=== PATIENT | male | born 1980 | race Caucasian/White ===

== ENCOUNTER 2017-10-26 11:51 | Emergency (ER) | payer OTHER, SELFPAY ==
[2017-10-26 11:52] VITALS: BP 136/100; PULSE 77; RESP 16; TEMP 36.7; O2SAT 99; BMI 24.3
--- NOTE | 2017-10-26 12:02 | RAD_ITS ---
STUDY: X-RAY - RIGHT HAND REASON FOR EXAM: Male, 37 years old. Injury to the fifth digit. TECHNIQUE: 3 view(s) of the hand. COMPARISON: None. FINDINGS: Normal radiocarpal articulation. Normal distal radioulnar joint. Normal visualized carpal bones. Normal carpal articulations Normal carpometacarpal articulation of the thumb. Normal second through fifth carpometacarpal joints. Normal metacarpi. Normal metacarpophalangeal joint of the thumb. Normal interphalangeal joint of the thumb. Normal proximal and distal phalanges of the thumb. Normal metacarpophalangeal joints of the second through fifth fingers. Minimal ventral subluxation of the proximal interphalangeal joint of the fifth digit. Normal phalanges of the second through fifth fingers. Soft tissue swelling. RAD/Hand Min 3 Views IMPRESSION: Minimal degree of ventral subluxation of the proximal interphalangeal joint of the fifth digit with soft tissue swelling. Electronically Signed: Liang Díaz MD at 12:41 EDT Tel [phone], Service support ,
[2017-10-26] MEDS: Naproxen 500 MG Tablet PO (12:06)
--- NOTE | 2017-10-26 12:34 | ED.VISSUMM ---
- ER Visit Summary Date of Service: 10/26/17 Chief Complaint: [] History of Present Illness: The patient is a 37 M [] Physical Examination: [] Test Results: [] Emergency Department Course and Treatment: [] Treatment Plan: [] Disposition: [] Impression: [] This note was generated with [employer] software. 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 Patient states he was pulling on a door and his fifth finger got caught behind the door and pulled an odd angle. He is complaining of pain to the fifth finger. He is right-hand dominant. Physical Examination: Vital signs are unremarkable. Physical examination significant for right upper extremity which reveals tenderness over the fifth finger itself. There is no significant tenderness over the metacarpals. He has normal sensation and cap refill. Test Results: Right hand x-rays reveal minimal ventral subluxation of the PIP joint with soft tissue swelling. Emergency Department Course and Treatment: Patient is given Naprosyn. Following x-ray digital block is performed with 3 cc 1% lidocaine. Fifth finger is reduced. Repeat x-ray is unremarkable. Patient will be placed in a AlumaFoam splint. He will follow-up with Where. Treatment Plan: [] Disposition: Discharge Impression: Right fifth finger PIP subluxation, reduced This note was generated with [employer] software. It may contain incorrect words, spelling, and punctuation that were not noted in review of the chart prior to signing <Anamaria Barakat - Last Filed: 10/26/17 13:19> ED Disposition <Leora Corrales - Last Filed: 10/26/17 12:34> <Anamaria Barakat - Last Filed: 10/26/17 13:19> - Plan for ED Patient: Chief Complaint: Upper Extremity Injury Referrals: Care Physician,No Primary [Primary Care Provider] -
--- NOTE | 2017-10-26 12:51 | ED.DCSUM_ITS ---
- ER Visit Summary Date of Service: 10/26/17 Chief Complaint: [] History of Present Illness: The patient is a 37 M [] Physical Examination: [] Test Results: [] Emergency Department Course and Treatment: [] Treatment Plan: [] Disposition: [] Impression: [] This note was generated with [employer] software. 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 Patient states he was pulling on a door and his fifth finger got caught behind the door and pulled an odd angle. He is complaining of pain to the fifth finger. He is right-hand dominant. Physical Examination: Vital signs are unremarkable. Physical examination significant for right upper extremity which reveals tenderness over the fifth finger itself. There is no significant tenderness over the metacarpals. He has normal sensation and cap refill. Test Results: Right hand x-rays reveal minimal ventral subluxation of the PIP joint with soft tissue swelling. Emergency Department Course and Treatment: Patient is given Naprosyn. Following x-ray digital block is performed with 3 cc 1% lidocaine. Fifth finger is reduced. Repeat x-ray is unremarkable. Patient will be placed in a AlumaFoam splint. He will follow-up with [facility]. Treatment Plan: [] Disposition: Discharge Impression: Right fifth finger PIP subluxation, reduced This note was generated with [employer] software. It may contain incorrect words, spelling, and punctuation that were not noted in review of the chart prior to signing <Anamaria Barakat - Last Filed: 10/26/17 13:19> ED Disposition <Leora Corrales - Last Filed: 10/26/17 12:34> <Anamaria Barakat - Last Filed: 10/26/17 13:19> - Plan for ED Patient: Chief Complaint: Upper Extremity Injury Referrals: Care Physician,No Primary [Primary Care Provider] -
--- NOTE | 2017-10-26 13:05 | RAD_ITS ---
STUDY: X-RAY - RIGHT HAND, ATTENTION FIFTH FINGER REASON FOR EXAM: Male, 37 years old. Post reduction. TECHNIQUE: 3 view(s) of the finger were obtained. COMPARISON: Comparison is made with prior examination done earlier today. FINDINGS: Normal metacarpal head. Normal metacarpophalangeal joint. Normal proximal phalanx. Normal middle phalanx. Normal distal phalanx. Normal proximal interphalangeal joint. Satisfactory reduction. Normal distal interphalangeal joint. RAD/Finger(s) Min 2 Views IMPRESSION: Normal x-ray examination of the finger. Electronically Signed: Liang Díaz MD at 13:33 EDT Tel [phone], Service support ,
--- NOTE | 2017-10-26 13:22 | ED.DEP ---
ED Disposition - Plan for ED Patient: Disposition: Home or Assisted Living Chief Complaint: Upper Extremity Injury Instructions: ED Dislocation Finger Redu Referrals: [facility] [[facility] OF PHYSICIANS] - 3-5 Days
[2017-10-26 13:36] VITALS: BP 128/82; PULSE 72; RESP 18; O2SAT 100
--- NOTE | 2017-10-26 13:41 | ED.DCSUM_ITS ---
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 Patient states he was pulling on a door and his fifth finger got caught behind the door and pulled an odd angle. He is complaining of pain to the fifth finger. He is right-hand dominant. Physical Examination: Vital signs are unremarkable. Physical examination significant for right upper extremity which reveals tenderness over the fifth finger itself. There is no significant tenderness over the metacarpals. He has normal sensation and cap refill. Test Results: Right hand x-rays reveal minimal ventral subluxation of the PIP joint with soft tissue swelling. Emergency Department Course and Treatment: Patient is given Naprosyn. Following x-ray digital block is performed with 3 cc 1% lidocaine. Fifth finger is reduced. Repeat x-ray is unremarkable. Patient will be placed in a AlumaFoam splint. He will follow-up with [facility]. Treatment Plan: [] Disposition: Discharge Impression: Right fifth finger PIP subluxation, reduced This note was generated with [employer]ation software. It may contain incorrect words, spelling, and punctuation that were not noted in review of the chart prior to signing This note was generated with [employer] dictation software. It may contain incorrect words, spelling, and punctuation that were not noted in review of the chart prior to signing ED Disposition - Plan for ED Patient: Disposition: Home or Assisted Living Chief Complaint: Upper Extremity Injury Instructions: ED Dislocation Finger Redu Referrals: [facility] [GROUP OF PHYSICIANS] - 3-5 Days
== END 2017-10-26 13:36 | disposition home or self-care (01) ==
PROVIDERS: Emergency Provider Emergency Medicine
DX: S63.234A Subluxation of proximal interphalangeal joint of right ring finger, initial encounter (principal); W23.0XXA Caught, crushed, jammed, or pinched between moving objects, initial encounter; Y93.89 Activity, other specified; Y92.218 Other school as the place of occurrence of the external cause; Y99.0 Civilian activity done for income or pay
CPT/HCPCS: 26770; 73130; 73140; 99284

== ENCOUNTER → 2018-09-15 15:05 | Outpatient (CLI) | payer OTHER, SELFPAY ==
--- NOTE | 2018-09-15 15:07 | RAD_ITS ---
STUDY: X-RAY - BILATERAL HIPS WITHOUT PELVIS REASON FOR EXAM: Male, 38 years old. Hip pain TECHNIQUE: AP pelvis, 2 views of the right hip, and 2 views of the left hip were obtained. COMPARISON: None. FINDINGS: Right Hip: Normal right femoral head, neck, intertrochanteric region and visualized proximal femur. Normal right acetabulum. Normal right hip joint. Left Hip: Normal left femoral head, neck, intertrochanteric region and visualized proximal femur. Normal left acetabulum. Normal left hip joint. Normal bilateral superior and inferior pubic rami , ischial tuberosities and pubic symphysis. RAD/Hips B/L min 2 views w/ Pelvis IMPRESSION: Normal x-ray examination of the right hip. Normal x-ray examination of the left hip. Electronically Signed: Rigoberto Douglas DO at 8:28 EDT Tel [phone], Service support ,
== END ==
PROVIDERS: Referring Provider Orthopaedic Surgery; Visit Provider Orthopaedic Surgery
DX: M25.559 Pain in unspecified hip (principal)
CPT/HCPCS: 73521